=== PATIENT | female | born 1990 | race Caucasian/White ===

== ENCOUNTER 2017-06-29 20:11 | Emergency (ER) | payer SELFPAY ==
[~2017-06-29] VITALS: Ht 160 cm; Wt 67.2 kg
[~2017-06-29 20:11] MED LIST: PREN-46 PO
[2017-06-29 20:47] VITALS: Ht 160 cm; Wt 67.2 kg
== END 2017-06-30 00:51 | disposition left against medical advice (07) ==
LOC: FTE 20:11
DX: Z53.21 Procedure and treatment not carried out due to patient leaving prior to being seen by health care provider (principal)